=== PATIENT | female | born 1955 | race African-American/Black ===

== ENCOUNTER 2017-01-14 22:00 | Emergency (ER) | payer OTHER ==
[~2017-01-14] VITALS: Ht 177.8 cm; Wt 89.8 kg
[2017-01-14 22:23] VITALS: BP 159/89
--- NOTE | 2017-01-14 23:56 | NUR ---
Patient to bed 06.
--- NOTE | 2017-01-15 00:22 | NUR ---
Dr. Yu evaluating patient at bedside.
[2017-01-15] MEDS ORDERED: cefTRIAXone 1,000 MG in LIDOCAINE 1% ED 2.1 ML IM ONE (00:25)
[2017-01-15] MEDS ORDERED: KETOROLAC 60 MG/2 ML VIAL IM ONE (00:25)
[2017-01-15 00:39] LABS: APPEARANCE,URINE CLEAR (CLEAR); BILIRUBIN,URINE NEGATIVE (NEGATIVE); BLOOD, URINE 2+ (NEGATIVE); COLOR,URINE YELLOW (YELLOW); LEUKOCYTE ESTERASE ,URINE NEGATIVE (NEGATIVE); NITRITE, URINE NEGATIVE (NEGATIVE); PH,URINE 5.5 (5.0-9.0); PROTEIN,URINE TRACE (NEGATIVE); UGLUCOSE NEGATIVE (NEGATIVE); UROBILINOGEN,URINE 0.2 EU/dL (0.2 - 1)
[2017-01-15 00:52] LABS: BACTERIA,URINE OCCASSIONAL /HPF (None Seen); RBC,URINE 0-5 (RARE) /HPF (0-5); SQUAMOUS EPITHELIAL CELL,UR 4-10 (MOD) /LPF (0-3 (FEW)); WBC,URINE 0-5 (RARE) /HPF (0-5)
--- NOTE | 2017-01-15 00:54 | NUR ---
INDWELLING [employer]ER[employer]OTT CATHETER REMOVED. ANGIO CATH INTACT. 250ML YELLOW CLEAR URINE REMOVED.
--- NOTE | 2017-01-15 01:18 | NUR ---
Patient discharged with v/s stable. Written and verbal after care instructions given and explained. Patient alert, oriented and verbalized understanding of instructions. Ambulatory with steady gait. All questions addressed prior to discharge. ID band removed. Patient advised to follow up with PMD. Rx of PYRIDIUM 200 MG, MACROBID 100 MG given. Patient educated on indication of medication including possible reaction and side effects. Opportunity to ask questions provided and answered.
[2017-01-15 02:30] VITALS: BP 135/95
== END 2017-01-15 01:18 | disposition home or self-care (01) ==
LOC: MED 22:00
DX: N39.0 Urinary tract infection, site not specified (principal); Z91.041 Radiographic dye allergy status; Z90.49 Acquired absence of other specified parts of digestive tract; Z98.890 Other specified postprocedural states
CPT/HCPCS: 81001; 96372; 99284; J0696; J1885; J2001

== ENCOUNTER 2020-11-05 15:21 | Emergency (ER) | payer OTHER ==
[~2020-11-05] VITALS: Ht 175.3 cm; Wt 89.8 kg
[2020-11-05 15:38] VITALS: BP 126/91
[2020-11-05] MEDS ORDERED: NACL 0.9% 1,000 ML IV ONE (16:00)
--- NOTE | 2020-11-05 16:19 | NUR ---
65YO F C/O PAIN AND SWELLING OF R FOOT S/P SPIDER BITE 5 DAYS AGO. PT ALSO WITH N/V/D. PT REPORTS RIGHT FLANK PAIN, DENIES URINARY SYMPTOMS. IN ED, VSS. ACCUCHECK IN ED 408. CLEAR BREATH SOUNDS. HEART RATE NORMAL REGULAR RHYTHM. R FOOT NOTED WITH SWELLING. PT AMBULATES WITH CANE. PT POSITIONED COMFORTABLY IN BED WITH 2 SIDERAILS UP. ERMD MADE AWARE OF PT STATUS. PMH: HTN, DM, HLD
[2020-11-05] MEDS ORDERED: ONDANSETRON 4 MG ODT PO ONE (16:20)
[2020-11-05] MEDS ORDERED: ACETAMINOPHEN EXTRA STRENGTH 500 MG TAB PO ONE (16:20)
[2020-11-05 16:33] LABS: BASOPHILS % (AUTO) 0.5 % (0.0-2.0); EOSINOPHILS # (AUTO) 0.1 K/uL (0-0.4); EOSINOPHILS % (AUTO) 1.6 % (0.0-4.0); HEMATOCRIT 35.7 % (36-48); HEMOGLOBIN 12.2 g/dL (12.0-16.0); LYMPHOCYTES # (AUTO) 1.5 K/uL (2.5-16.5); LYMPHOCYTES % (AUTO) 21.1 % (20.5-51.1); MEAN CORPUSCULAR HEMOGLOBIN 29 pg (27-31); MEAN CORPUSCULAR HGB CONC 34 g/dL (33-37); MEAN CORPUSCULAR VOLUME 85.8 fL (80-94); MONOCYTES # (AUTO) 0.6 K/uL (0.8-1.0); MONOCYTES % (AUTO) 7.8 % (1.7-9.3); NEUTROPHILS # (AUTO) 4.9 K/uL (1.8-7.7); PLATELET COUNT (AUTO) 338 K/uL (140-450); RED BLOOD CELL COUNT(AUTO) 4.17 MIL/uL (4.20-5.40); WHITE BLOOD COUNT (AUTO) 7.1 K/uL (4.8-10.8)
[2020-11-05 16:55] LABS: ALBUMIN 3.6 g/dL (3.4-5.0); CARBON DIOXIDE 30.1 mmol/L (21-32); POTASSIUM 4.1 mmol/L (3.5-5.1); TOTAL BILIRUBIN 0.6 mg/dL (0.0-1.0)
[2020-11-05] MEDS ORDERED: ACET-2619 PO (19:00)
[2020-11-05 19:25] VITALS: BP 126/91
--- NOTE | 2020-11-05 19:26 | NUR ---
Patient discharged with v/s stable. Written and verbal after care instructions given and explained. Patient alert, oriented and verbalized understanding of instructions. Ambulatory with assist. All questions addressed prior to discharge. ID band removed. Patient advised to follow up with PMD. Rx of TYLENOL given. Patient educated on indication of medication including possible reaction and side effects. Opportunity to ask questions provided and answered.
== END 2020-11-05 19:26 | disposition home or self-care (01) ==
LOC: MED 15:21
DX: M79.89 Other specified soft tissue disorders (principal); E11.65 Type 2 diabetes mellitus with hyperglycemia; R74.8 Abnormal levels of other serum enzymes; I10 Essential (primary) hypertension; E78.5 Hyperlipidemia, unspecified
CPT/HCPCS: 36415; 80053; 83690; 85025; 93971; 99284; Q0162

== ENCOUNTER 2020-11-25 16:58 | Emergency (ER) | payer OTHER ==
[~2020-11-25] VITALS: Ht 172.7 cm; Wt 89.4 kg
[~2020-11-25 16:58] MED LIST: ACET-2619 PO
[2020-11-25 17:12] VITALS: BP 148/91
[2020-11-25] MEDS ORDERED: ACETAMINOPHEN 325 MG TAB PO ONE (17:45)
[2020-11-25] MEDS ORDERED: ONDANSETRON 4 MG/2 ML VIAL IVP ONE (17:45)
[2020-11-25] MEDS ORDERED: NACL 0.9% 1,000 ML IV ONE ×2 (17:45→19:50)
[2020-11-25 18:15] LABS: BASOPHILS # (AUTO) 0.1 K/uL (0.00-0.22); EOSINOPHILS # (AUTO) 0.2 K/uL (0-0.4); EOSINOPHILS % (AUTO) 1.8 % (0.0-4.0); HEMATOCRIT 34.1 % (36-48); HEMOGLOBIN 11.8 g/dL (12.0-16.0); LYMPHOCYTES % (AUTO) 22.2 % (20.5-51.1); MEAN CORPUSCULAR HEMOGLOBIN 29 pg (27-31); MEAN CORPUSCULAR HGB CONC 35 g/dL (33-37); MEAN CORPUSCULAR VOLUME 85.1 fL (80-94); MONOCYTES # (AUTO) 0.6 K/uL (0.8-1.0); MONOCYTES % (AUTO) 6.8 % (1.7-9.3); NEUTROPHILS # (AUTO) 6.3 K/uL (1.8-7.7); NEUTROPHILS % (AUTO) 68.2 % (42.2-75.2); PLATELET COUNT (AUTO) 305 K/uL (140-450); RED BLOOD CELL COUNT(AUTO) 4.01 MIL/uL (4.20-5.40); RED CELL DISTRIBUTION WIDTH 14.1 % (11.6-13.7); WHITE BLOOD COUNT (AUTO) 9.2 K/uL (4.8-10.8)
[2020-11-25 18:15] LABS: APPEARANCE,URINE CLEAR (CLEAR); BILIRUBIN,URINE NEGATIVE (NEGATIVE); BLOOD, URINE NEGATIVE (NEGATIVE); COLOR,URINE YELLOW (YELLOW); LEUKOCYTE ESTERASE ,URINE NEGATIVE (NEGATIVE); NITRITE, URINE NEGATIVE (NEGATIVE); PH,URINE 5.5 (5.0-9.0); UGLUCOSE 3+ (NEGATIVE)
[2020-11-25 18:46] LABS: ANION GAP 10.9 (8-16); CARBON DIOXIDE 32.9 mmol/L (21-32); POTASSIUM 3.8 mmol/L (3.5-5.1)
[2020-11-25 18:47] LABS: CREATININE 1.1 mg/dL (0.6-1.3); TOTAL BILIRUBIN 0.4 mg/dL (0.0-1.0)
[2020-11-25 18:48] LABS: ALBUMIN 3.6 g/dL (3.4-5.0)
[2020-11-25] MEDS ORDERED: INSULIN REGULAR, HUMAN 100 UNIT/ML VIAL IVP ONE (19:20)
[2020-11-25] MEDS ORDERED: LANC1COM6 MC (20:58)
[2020-11-25 21:15] VITALS: BP 139/78
== END 2020-11-25 21:15 | disposition home or self-care (01) ==
LOC: MED 16:58
DX: E11.65 Type 2 diabetes mellitus with hyperglycemia (principal); D64.9 Anemia, unspecified; R53.1 Weakness; R42 Dizziness and giddiness; R35.0 Frequency of micturition; I10 Essential (primary) hypertension; Z85.41 Personal history of malignant neoplasm of cervix uteri; Z90.710 Acquired absence of both cervix and uterus; Z90.49 Acquired absence of other specified parts of digestive tract; Z98.890 Other specified postprocedural states; Z88.2 Allergy status to sulfonamides; Z88.8 Allergy status to other drugs, medicaments and biological substances; Z79.84 Long term (current) use of oral hypoglycemic drugs; Z79.899 Other long term (current) drug therapy
CPT/HCPCS: 36415; 80053; 81003; 83036; 84484; 85025; 93005; 96361; 96374; 96375; 99285; J1815; J2405; J7030

== ENCOUNTER 2023-06-18 16:58 | Emergency (ER) | payer OTHER ==
[~2023-06-18 16:58] MED LIST changes: +LANC1COM6 MC
[2023-06-19] MEDS ORDERED: ACET-2619 PO (14:37)
[2023-06-19] MEDS ORDERED: NAPR-1704 PO (14:37)
[2023-06-19] MEDS ORDERED: EMLAC TP (14:37)
[2023-06-19] MEDS ORDERED: CEPH-588 PO (14:37)
[2023-06-19] MEDS ORDERED: METR-520 PO (14:41)
== END 2023-06-18 17:00 | disposition left against medical advice (07) ==
LOC: MED 16:58
DX: R53.81 Other malaise (principal); Z53.21 Procedure and treatment not carried out due to patient leaving prior to being seen by health care provider

== ENCOUNTER 2023-06-19 11:19 | Emergency (ER) | payer OTHER ==
[~2023-06-19] VITALS: Ht 172.7 cm; Wt 88.5 kg
[2023-06-19 12:16] VITALS: BP 114/62; PULSE 65; RESP 20; TEMP 98.3; O2SAT 98
[2023-06-19] MEDS ORDERED: KETOROLAC 30 MG/ML VIAL IM ONE (13:35)
[2023-06-19] MEDS ORDERED: LIDOCAINE 2% 100 MG/5 ML UJET TP ONE (13:35)
[2023-06-19 14:10] LABS: APPEARANCE,URINE CLEAR (CLEAR); BILIRUBIN,URINE NEGATIVE (NEGATIVE); BLOOD, URINE TRACE-I (NEGATIVE); COLOR,URINE YELLOW (YELLOW); LEUKOCYTE ESTERASE ,URINE 2+ (NEGATIVE); NITRITE, URINE NEGATIVE (NEGATIVE); PH,URINE 5.5 (5.0-9.0); PROTEIN,URINE NEGATIVE (NEGATIVE); UGLUCOSE 3+ (NEGATIVE); UROBILINOGEN,URINE 0.2 EU/dL (0.2 - 1)
[2023-06-19 14:32] LABS: BACTERIA,URINE 1+ /HPF (None Seen); MUCUS,URINE 1+ /LPF (None Seen); RBC,URINE 0-5 /HPF (0-5); SQUAMOUS EPITHELIAL CELL,UR 4-10 (MOD) /LPF (0-3 (FEW)); TRICHOMONAS,URINE None Seen /HPF (None Seen); YEAST,URINE None Seen /HPF (None Seen)
[2023-06-19] MEDS ORDERED: INSULIN REGULAR, HUMAN 100 UNIT/ML VIAL SUBQ ONE (14:35)
[2023-06-19] MEDS ORDERED: cephALEXin 500 MG CAP PO ONE (14:35)
[2023-06-19] MEDS ORDERED: ACET-2619 PO (14:37)
[2023-06-19] MEDS ORDERED: CEPH-588 PO (14:37)
[2023-06-19] MEDS ORDERED: NAPR-1704 PO (14:37)
[2023-06-19] MEDS ORDERED: EMLAC TP (14:37)
[2023-06-19] MEDS ORDERED: METR-520 PO (14:41)
[2023-06-19 15:09] VITALS: BP 114/62; PULSE 65; RESP 20; TEMP 98.3; O2SAT 98
== END 2023-06-19 15:11 | disposition home or self-care (01) ==
LOC: MED 11:19
DX: N76.0 Acute vaginitis (principal); Z92.89 Personal history of other medical treatment; E11.9 Type 2 diabetes mellitus without complications; I10 Essential (primary) hypertension; Z90.710 Acquired absence of both cervix and uterus; Z79.899 Other long term (current) drug therapy; Z79.1 Long term (current) use of non-steroidal anti-inflammatories (NSAID); Z79.2 Long term (current) use of antibiotics; Z88.8 Allergy status to other drugs, medicaments and biological substances; Z88.2 Allergy status to sulfonamides
CPT/HCPCS: 81001; 82948; 87070; 87086; 87210; 87491; 96372; 99284; J1815; J1885